=== PATIENT | female | born 1965 | race Caucasian/White ===

== ENCOUNTER 2017-10-27 09:45 | Outpatient (CLI) | payer OTHER ==
--- NOTE | 2017-10-27 11:46 | MMO ---
BILATERAL SCREENING MAMMOGRAM: Comparison: 16, 14, 13, 12, 02-25-11 History: Annual screening exam. FINDINGS: This study is interpreted with the assistance of computer aided detection. Scattered fibroglandular changes of both breasts are noted. Patient has history of breast reduction w ith some post reduction changes. There is no dominant mass, suspicious calcification, or other signs of malignancy. IMPRESSION: BIRADS category 2 - benign findings. POS: SOULEYMANE
== END 2017-10-27 09:46 | disposition home or self-care (01) ==
LOC: SCSMAMMO 09:45
PROVIDERS: ATTEND Family Medicine
DX: Z12.31 Encounter for screening mammogram for malignant neoplasm of breast (principal)
CPT/HCPCS: 77067

== ENCOUNTER 2018-04-18 12:25 | Outpatient (CLI) | payer OTHER | END 2018-04-18 12:26 | disposition home or self-care (01) | LOC: BICULT 12:25 | PROVIDERS: ATTEND Nurse Practitioner Family | DX: R10.12 Left upper quadrant pain (principal) | CPT/HCPCS: 76700 ==

== ENCOUNTER 2018-08-01 10:37 | Outpatient (CLI) | payer OTHER ==
--- NOTE | 2018-08-01 12:39 | CT ---
CT OF ABDOMEN AND PELVIS: Date: 08-01-18 Comparison: None. History: Left upper quadrant pain, gastroesophageal reflux disease. Technique: Serial axial CT imaging is obtained at 5 mm intervals from lung bases through pubic symphy sis with oral contrast. Coronal reformatted imaging obtained. FINDINGS: The lack of IV contrast limits assessment of the viscera, vascular structures, and for lymphadenopath y. The imaged lung bases are unremarkable. No free intraperitoneal air or fluid is seen. The liver, spleen, gallbladder, pancreas, and adrenal glands appear grossly unremarkable. Two nonobstructing stones are seen in the upper pole of the left kidney measuring up to 4 mm. There i s a punctate nonobstructing stone in the lower pole of the left kidney measuring 2-3 mm. There are three upper pole nonobstructing stones within the right kidney measuring up to approximatel y 4-5 mm. No evidence for obstructive uropathy is noted on either side. No focal area of bowel inflammatory change is seen. No evidence for bowel obstruction is apparent. The colon is collapsed and thus not well assessed from the level of the hepatic flexure through the l evel of the rectum. No acute osseous abnormality is noted. IMPRESSION: 1. No evidence for bowel obstruction or free intraperitoneal air. 2. Multiple nonobstructing bilateral renal calculi. POS: SOULEYMANE
== END 2018-08-01 10:38 | disposition home or self-care (01) ==
LOC: SCSCT 10:37
PROVIDERS: ATTEND Internal Medicine Gastroenterology
DX: R10.12 Left upper quadrant pain (principal); R19.4 Change in bowel habit; K21.9 Gastro-esophageal reflux disease without esophagitis; N20.0 Calculus of kidney
CPT/HCPCS: 74176

== ENCOUNTER 2019-03-08 09:27 | Outpatient (CLI) | payer OTHER ==
--- NOTE | 2019-03-08 10:03 | MMO ---
Bilateral MAMMO Bilat Screen [facility]. CLINICAL HISTORY: Patient is 53 years old and is seen for screening. The patient has no family history of breast cancer. The patient has no personal history of cancer. The patient has a history of Breast reduction in 2013. VIEWS: The views performed were: bilateral craniocaudal and bilateral mediolateral oblique. FILMS COMPARED: The present examination has been compared to prior imaging studies performed at [facility] on 04/03/2014, 02/05/2016 and 10/27/2017, and at [facility] on 03/31/2012 and 05/02/2013. This study has been interpreted with the assistance of computer-aided detection. MAMMOGRAM FINDINGS: There are scattered fibroglandular densities. There are no suspicious masses, suspicious calcifications, or new areas of architectural distortion. IMPRESSION: THERE IS NO MAMMOGRAPHIC EVIDENCE OF MALIGNANCY. A ROUTINE FOLLOW-UP MAMMOGRAM IN 1 YEAR IS RECOMMENDED. ACR BI-RADS Category 1 - Negative MAMMOGRAPHY NOTE: 1. A negative mammogram report should not delay a biopsy if a dominant of clinically suspicious mass is present. 2. Approximately 10% to 15% of breast cancers are not detected by mammography. 3. Adenosis and dense breasts may obscure an underlying neoplasm.
== END 2019-03-08 09:28 | disposition home or self-care (01) ==
LOC: SCSMAMMO 09:27
PROVIDERS: ATTEND Family Medicine
DX: Z12.31 Encounter for screening mammogram for malignant neoplasm of breast (principal)
CPT/HCPCS: 77067

== ENCOUNTER 2025-10-05 05:41 | Day surgery (SDC) | payer OTHER ==
[2025-10-02 14:13] VITALS: BMI 21.2
[2025-10-05] MEDS ORDERED: Thrombin 5000 UNITS/5 ML VIAL ONE (06:11)
[2025-10-05] MEDS ORDERED: fentaNYL PF 100 MCG/2 ML SYRINGE ONE ×3 (06:13→09:22)
[2025-10-05] MEDS ORDERED: Lidocaine 1% PF 5 ML VIAL ONE (06:15)
[2025-10-05] MEDS ORDERED: Famotidine/PF 20 mg/2ml Vial ONE (06:22)
[2025-10-05] MEDS ORDERED: Scopolamine 1 mg/72 hour Patch ONE (06:22)
[2025-10-05] MEDS ORDERED: PROPOFOL 200 MG/20 ML VIAL ONE (07:10)
[2025-10-05] MEDS ORDERED: Rocuronium Bromide 10 MG/ML (10ML VIAL) ONE (07:10)
[2025-10-05] MEDS ORDERED: diphenhydrAMINE 50 MG/ML VIAL ONE (07:52)
[2025-10-05] MEDS ORDERED: SUGAMMADEX SODIUM 200 MG/2 ML VIAL ONE (08:32)
[2025-10-05] MEDS ORDERED: Ondansetron PF 4 MG/2 ML Vial ONE (08:34)
[2025-10-05] MEDS ORDERED: HYDROcodone/Acetaminophen 5/325 mg Tablet ONE (10:57)
[2025-10-05] MEDS ORDERED: Cyclobenzaprine 10 MG TAB ONE (12:25)
== END 2025-10-05 12:46 | disposition home or self-care (01) ==
LOC: SDC 05:41
PROVIDERS: ATTEND Neurological Surgery
PROC: 0RG2070 Fusion of 2 or more Cervical Vertebral Joints with Autologous Tissue Substitute, Anterior Approach, Anterior Column, Open Approach (ICD-10-PCS; principal; 2025-10-05)
DX: M54.12 Radiculopathy, cervical region (principal); M48.02 Spinal stenosis, cervical region; Z91.041 Radiographic dye allergy status; Z90.710 Acquired absence of both cervix and uterus; Z88.1 Allergy status to other antibiotic agents; Z88.2 Allergy status to sulfonamides
CPT/HCPCS: C1713; J1100; J1200; J1308; J2405; J2704; J3010